=== PATIENT | male | born 1935 | race Caucasian/White ===

== ENCOUNTER 2017-12-01 14:28 | Emergency (ER) | payer MEDICARE, OTHER, SELFPAY ==
[2017-12-01] VITALS (7 sets, daily range): BP systolic 106–128; BP diastolic 56–70; PULSE 72–85; RESP 18–25; TEMP 37.1; O2SAT 95–100
--- NOTE | 2017-12-01 14:34 | ED.NEUROSD ---
HPI - Neuro Symptoms/Deficit General Chief Complaint: Neuro Symptoms/Deficit Stated Complaint: Stoke Time Seen by Provider: 12/01/17 14:28 Source: family and EMS Mode of arrival: EMS Limitations: altered mental status History of Present Illness HPI Narrative: 82-year-old female arrived by EMS as a code stroke. Approximately 30 min prior to arrival at approximately 2 o'clock this afternoon the patient's daughter who was with the patient stated that she started to slow her words. The patient's daughter stated that she started complaining about her left arm and then passed out unknown how long the loss of consciousness was. Patient is a stage IV pancreatic cancer and is on palliative care however the daughter stated that with regard to any potential stroke she would like everything done patient is currently taking Lovenox. Patient's daughter states that approximately 10 days ago she spent several days at [facility] and was diagnosed with a stroke based on an MRI. Patient is unable to provide any HPI Related Data Home Medications Medication Instructions Recorded Confirmed aspirin 81 mg PO DAILY 12/01/17 12/01/17 atorvastatin 40 mg PO QPM 12/01/17 12/01/17 celecoxib [Celebrex] 100 mg PO BID 12/01/17 12/01/17 dexamethasone 1 dose pk PO PRN 12/01/17 12/01/17 diphenoxylate-atropine [Lomotil] 2 tab PO QID PRN 12/01/17 12/01/17 docusate sodium 100 mg PO DAILY 12/01/17 12/01/17 enoxaparin 60 mg SUB-Q Q12H 12/01/17 12/01/17 fentanyl 1 patch TRANSDERMAL Q72H 12/01/17 12/01/17 gabapentin 300 mg PO QPM 12/01/17 12/01/17 hydrocodone-acetaminophen 1 tab PO Q4-6H PRN 12/01/17 12/01/17 lactulose 1 dose PO BID-TID 12/01/17 12/01/17 lidocaine-prilocaine 1 applic TOPICAL DIRECTED 12/01/17 12/01/17 allupw-iooxfnyz-niexrep [Creon] 1 cap PO QD-TID 12/01/17 12/01/17 loperamide 2 mg PO TID PRN 12/01/17 12/01/17 lorazepam 0.5 mg PO TID 12/01/17 12/01/17 ondansetron 1 dose PO DIRECTED 12/01/17 12/01/17 ondansetron HCl 1 tab PO DIRECTED 12/01/17 12/01/17 prochlorperazine maleate 10 mg PO Q6H PRN 12/01/17 12/01/17 ranitidine HCl 1 dose PO DIRECTED 12/01/17 12/01/17 Review of Systems Review of Systems review of systems that was obtained was provided by the daughter Patient was unable to provide any review of systems secondary to her clinical condition review of systems includes neuro: loss of consciousness, slurring her words, left arm numbness no seizure-like activity no loss of bowel or bladder no vomiting no problems with breathing other [facility] Medical History CVA (cerebral vascular accident) (Acute) Pancreatic cancer (Acute) Comment: reviewed patient's past medical surgical family and social history with the daughter Exam Initial Vital Signs Initial Vital Signs: Vital Signs Temperature 98.7 F 12/01/17 14:27 Pulse Rate 79 12/01/17 14:27 Blood Pressure 106/60 12/01/17 14:27 Pulse Oximetry 96 12/01/17 14:27 Const General: No cooperative, comfortable, well developed, well groomed, No acute distress and No combative Orientation: alert, not awake and not oriented x3 HENMT Head: normal to inspection and normocephalic Resp Effort & Inspection: normal respiratory effort Auscultation: clear to auscultation bilaterally Cardio Palpation: normal PMI Rhythm: regular rhythm Pulses: radial pulses present GI Inspection: non-distended Palpation: soft Skin Lesions: no lesions Rashes: no rashes Neuro Other: upon arrival patient was awake and alert. On my examination was unable to speak coherently would not follow commands would not hold her arms up in the air on command however she did spontaneously move her arms and reach out for the side rails would not hold her legs up in the air however would bend her knees spontaneously Would not follow commands as far as for finger to nose would not follow commands as far as testing of cranial nerves Extrem Other: no gross deformities Psych Appearance: grossly normal and well kempt Course Orders Ordered: ED Orders 12/01/17 14:34 EKG-12 Lead Stat 08/01/18 14:41 CT angio head and neck Stat 12/01/17 14:49 Basic Metabolic Panel Stat Complete Blood Count AUTO DIFF Stat Partial Thromboplastin Time Stat Prothrombin Time INR Stat Troponin I Stat Sodium Chloride (Normal Saline 0.9%) 1,000 mls @ 1,000 mls/hr IV BOLUS ONE Stop: 12/01/17 18:05 Discontinued Medications Aspirin (Aspirin Chew) 324 mg PO NOW ONE Stop: 12/01/17 17:07 Vital Signs - 8 hr 12/01/17 14:27 12/01/17 15:04 12/01/17 15:37 Temperature 98.7 F Pulse Rate 79 75 72 Respiratory Rate 19 19 Blood Pressure 106/60 Blood Pressure [Right Arm] 120/56 L 111/57 L Pulse Oximetry 96 97 95 12/01/17 16:09 12/01/17 16:44 12/01/17 17:01 Temperature Pulse Rate 75 85 81 Respiratory Rate 18 25 H 18 Blood Pressure Blood Pressure [Right Arm] 112/56 L 112/60 128/70 H Pulse Oximetry 100 98 98 MDM - Neuro Symptoms/Deficit Lab Data Attestation: I reviewed the patient's lab results. Result diagrams: 12/01/17 14:49 12/01/17 14:49 Lab Results 12/01/17 12/01/17 12/01/17 Range/Units 14:49 14:49 14:49 WBC 8.9 (4.5-11.0) X10^3/uL RBC 2.97 L (4.0-5.2) X10^6/uL Hgb 9.6 L (12.0-16.0) g/dL Hct 28.6 L (36-46) % MCV 96.2 (80-100) fL MCH 32.1 (26-34) PG MCHC 33.4 (30-36) % RDW 15.4 H (11.6-14.8) % Plt Count 190 (150-400) X10^3/uL Neut % (Auto) 54.5 (50-75) % Lymph % (Auto) 27.0 (25-40) % [place] % (Auto) 12.2 (3-14) % Eos % (Auto) 5.6 H (2-4) % Baso % (Auto) 0.7 (0-2) % Neut # (Auto) 4800 (6808-0393) /uL PT 12.0 (10.1-12.7) SECONDS INR 1.1 (0.9-1.3) APTT 37 H (26.4-36.2) SECONDS Sodium 137 (137-145) mmol/L Potassium 4.4 (3.4-5.1) mmol/L Chloride 105 (98-107) mmol/L Carbon Dioxide 23 (22-32) mmol/L BUN 18 H (7-17) mg/dL Creatinine 0.70 (0.52-1.04) mg/dL Estimated GFR > 60.0 (>60) mL/min BUN/Creatinine Ratio 25.7 H (6-22) Glucose 89 (80-110) mg/dL Calcium 9.3 (8.4-10.2) mg/dL Troponin I 0.027 (0.01-0.034) ng/mL Imaging Data CT scan - head: Radiologist's impression: PROCEDURE: CT ANGIO HEAD AND NECK INDICATIONS: possible stroke sudden on confusion TECHNIQUE: Pre-contrast 4.5 mm thick sections acquired from the foramen magnum to the vertex. After the administration of intravenous contrast, 1 mm thick sections acquired from the aortic arch through the [place] of [place]. Post-contrast 4.5 mm thick sections then re-acquired from the foramen magnum to the vertex. 3-dimensional hwhsqaf-thxpzxrox-xhygtfvall (MIP) and/or volume rendering reformats were acquired of the central intracranial vasculature and neck separately. COMPARISON: None. FINDINGS: Image quality: Excellent. BRAIN: CSF spaces: Ventricles are normal in size and shape. Basal cisterns are patent. No extra-axial fluid collections. Brain: No midline shift. No intracranial bleeds or masses. Wilson-white matter interface appears intact. Skull and face: Calvarium and facial bones appear intact, without suspicious lesions. Orbits appear normal. Sinuses: Sinuses and mastoids are clear. HEAD CT ANGIOGRAPHY: Anterior circulation: Intracranial internal carotid arteries are normal in size and flow. The flow within the paired anterior cerebral arteries is normal and symmetric. The flow within the middle cerebral arteries is normal and symmetric. The anterior communicating artery is seen. No aneurysms are seen. Posterior circulation: Visualized portions of the vertebral arteries demonstrate normal caliber, and join to form a normal appearing basilar artery. Flow within the posterior cerebral arteries is normal and symmetric. No aneurysms are seen. NECK CT ANGIOGRAPHY: Carotid system: The great vessels demonstrate a conventional anatomy as they arise from the aortic arch. The origins of the common carotid arteries appear patent. The common carotid arteries demonstrate normal caliber and courses. The bifurcation regions are both widely patent. The internal carotid arteries demonstrate normal calibers and courses. Posterior circulation: The origins of the vertebral arteries both appear widely patent. The more superior extracranial portions of both vertebral arteries also demonstrate normal courses and calibers. They join to form a normal appearing basilar artery. Soft tissues: Visualized neck soft tissues demonstrate no suspicious abnormalities. Bones: No suspicious bony lesions. Visualized cervical spine appears normally aligned. IMPRESSION: 1. No acute intracranial process. 2. Moderate atrophy and chronic microvascular ischemic changes. 3. No areas of hemodynamically significant stenosis, vascular occlusion or aneurysmal dilation within the anterior or posterior circulation. 4. No areas of hemodynamically significant stenosis, vascular occlusion or aneurysmal dilation within the neck vasculature. Any quantitative measurements of stenosis were performed using NASCET criteria. Dictated by: Zuleyma Zavala M.D. on 12/01/2017 at 15:04 Approved by: Zuleyma Zavala M.D. on 12/01/2017 at 15:16 ECG Data Attestation: I personally reviewed and interpreted this ECG as follows: Prior ECG tracings: not available for review Interpretation: EKG dated 01 December 2017 time 1440 hr sinus rhythm ventricular rate is 79 normal as needed oval normal QRS normal QTC No ST T wave changes MDM Narrative Medical decision making narrative: upon arrival patient had a normal blood glucose level. Head CT read by our radiologist showing no acute pathology in no hemodynamic significant stenosis. difficult to obtain neurologic exam on the patient secondary to her ability to participate in the exam. She would not move her arms and legs on command would not hold them up however she would do this spontaneously. During her time here in the emergency department her symptoms did improved/resolved. She did have some problems with speaking however was not slurring her words. She was very soft-spoken. Patient's daughter asked us to talk with [facility] since that is where her last neurologic care was provided. The images were sent. I did discuss the case with Dr. Sams with Neurology who stated that his read of the CTA did show a right-sided occlusion. With the information that I had prior to arrival and the prior CVA 10 days ago, the question as to whether not the neurologic exam was abnormal secondary to the patient's effort, ability to understand the directions, and the apparent improvement of the symptoms while here in the emergency department And the normal head CT read by Radiology, tPA was not administered. after discussion with Neurology at [facility] will send the patient by air for further evaluation and potential clot retrieval by Interventional Radiology. Transfer center stated that Dr. Spivey would be the accepting provider I discussed this with the patient and the daughter who was at bedside. They both expressed understanding and agreement with plan. Discharge Plan Departure Patient Disposition: [facility] Clinical Impression: Cerebrovascular accident Prescriptions: No Action atorvastatin 40 mg Tablet 40 mg PO QPM RF: 0 hydrocodone-acetaminophen 5-325 mg Tablet 1 tab PO Q4-6H PRN (Reason: Pain, Moderate) RF: 0 ondansetron HCl 4 mg Tablet 1 tab PO DIRECTED RF: 0 loperamide 2 mg Tablet 2 mg PO TID PRN (Reason: Diarrhea) RF: 0 diphenoxylate-atropine [Lomotil] 2.5-0.025 mg Tablet 2 tab PO QID PRN (Reason: Diarrhea) RF: 0 prochlorperazine maleate 10 mg Tablet 10 mg PO Q6H PRN (Reason: Nausea) RF: 0 aspirin 81 mg Tablet,Delayed Release (Dr/Ec) 81 mg PO DAILY RF: 0 ondansetron 8 mg Tablet,Disintegrating 1 dose PO DIRECTED RF: 0 lidocaine-prilocaine 2.5-2.5 % Cream 1 applic Topical DIRECTED RF: 0 lorazepam 0.5 mg Tablet 0.5 mg PO TID RF: 0 ranitidine HCl 150 mg Tablet 1 dose PO DIRECTED RF: 0 dexamethasone 4 mg Tablet 1 dose pk PO PRN RF: 0 docusate sodium 100 mg Capsule 100 mg PO DAILY RF: 0 gabapentin 300 mg Capsule 300 mg PO QPM RF: 0 fentanyl 25 mcg/hr Patch 72 Hour 1 patch TRANSDERMAL Q72H RF: 0 celecoxib [Celebrex] 100 mg Capsule 100 mg PO BID RF: 0 enoxaparin 60 mg/0.6 mL Syringe 60 mg SUB-Q Q12H RF: 0 wapgqh-zsusxwjj-zepwmdq [Creon] 36,000-114,000- 180,000 unit Capsule,Delayed Release(Dr/Ec) 1 cap PO QD-TID RF: 0 lactulose 1 dose PO BID-TID RF: 0
--- NOTE | 2017-12-01 14:41 | DI.CT.S_ITS ---
PROCEDURE: CT ANGIO HEAD AND NECK INDICATIONS: possible stroke sudden on confusion TECHNIQUE: Pre-contrast 4.5 mm thick sections acquired from the foramen magnum to the vertex. After the administration of intravenous contrast, 1 mm thick sections acquired from the aortic arch through the [place] of [place]. Post-contrast 4.5 mm thick sections then re-acquired from the foramen magnum to the vertex. 3-dimensional sylymzx-pmthourvb-jvdvzftofn (MIP) and/or volume rendering reformats were acquired of the central intracranial vasculature and neck separately. COMPARISON: None. FINDINGS: Image quality: Excellent. BRAIN: CSF spaces: Ventricles are normal in size and shape. Basal cisterns are patent. No extra-axial fluid collections. Brain: No midline shift. No intracranial bleeds or masses. Wilson-white matter interface appears intact. Skull and face: Calvarium and facial bones appear intact, without suspicious lesions. Orbits appear normal. Sinuses: Sinuses and mastoids are clear. HEAD CT ANGIOGRAPHY: Anterior circulation: Intracranial internal carotid arteries are normal in size and flow. The flow within the paired anterior cerebral arteries is normal and symmetric. The flow within the middle cerebral arteries is normal and symmetric. The anterior communicating artery is seen. No aneurysms are seen. Posterior circulation: Visualized portions of the vertebral arteries demonstrate normal caliber, and join to form a normal appearing basilar artery. Flow within the posterior cerebral arteries is normal and symmetric. No aneurysms are seen. NECK CT ANGIOGRAPHY: Carotid system: The great vessels demonstrate a conventional anatomy as they arise from the aortic arch. The origins of the common carotid arteries appear patent. The common carotid arteries demonstrate normal caliber and courses. The bifurcation regions are both widely patent. The internal carotid arteries demonstrate normal calibers and courses. Posterior circulation: The origins of the vertebral arteries both appear widely patent. The more superior extracranial portions of both vertebral arteries also demonstrate normal courses and calibers. They join to form a normal appearing basilar artery. Soft tissues: Visualized neck soft tissues demonstrate no suspicious abnormalities. Bones: No suspicious bony lesions. Visualized cervical spine appears normally aligned. IMPRESSION: 1. No acute intracranial process. 2. Moderate atrophy and chronic microvascular ischemic changes. 3. No areas of hemodynamically significant stenosis, vascular occlusion or aneurysmal dilation within the anterior or posterior circulation. 4. No areas of hemodynamically significant stenosis, vascular occlusion or aneurysmal dilation within the neck vasculature. Any quantitative measurements of stenosis were performed using NASCET criteria. Dictated by: Zuleyma Zavala M.D. on 12/01/2017 at 15:04 Approved by: Zuleyma Zavala M.D. on 12/01/2017 at 15:16
[2017-12-01 15:01] LABS: Add Manual Diff / Slide Review NO; Basophils Percent Auto 0.7 % (0-2); Eosinophils Percent Auto 5.6 % (2-4); Hematocrit 28.6 % (36-46); Hemoglobin 9.6 g/dL (12.0-16.0); Mean Corpuscular HGB Conc 33.4 % (30-36); Mean Corpuscular Hemoglobin 32.1 PG (26-34); Mean Corpuscular Volume 96.2 fL (80-100); Monocytes Percent Auto 12.2 % (3-14); Neutrophils Absolute Auto 4800 /uL (3000-5900); Neutrophils Percent Auto 54.5 % (50-75); Platelet Count 190 X10^3/uL (150-400); Red Blood Cell Count 2.97 X10^6/uL (4.0-5.2); Red Cell Distribution Width 15.4 % (11.6-14.8); White Blood Cell Count 8.9 X10^3/uL (4.5-11.0)
[2017-12-01 15:13] LABS: INR 1.1 (0.9-1.3)
[2017-12-01 15:15] LABS: PTT Partial Thromboplastin Tim 37 SECONDS (26.4-36.2)
[2017-12-01 15:16] LABS: BUN Creatinine Ratio 25.7 (6-22); Blood Urea Nitrogen 18 mg/dL (7-17); Calcium 9.3 mg/dL (8.4-10.2); Carbon Dioxide 23 mmol/L (22-32); Chloride 105 mmol/L (98-107); Estimated Glomerular Filt Rate > 60.0 mL/min (>60); Glucose 89 mg/dL (80-110); HEMOLYSIS 16 (0-50); Potassium 4.4 mmol/L (3.4-5.1); Sodium 137 mmol/L (137-145)
[2017-12-01 15:28] LABS: Troponin I 0.027 ng/mL (0.01-0.034)
--- NOTE | 2017-12-01 17:22 | PC.NURSE ---
Pt mental status improving,pt able to answer questions with some slurring. Pt able to write down information,pt sitting upright taking fluids,pt states that she has a little bit of pain.
[2017-12-01] MEDS: ASPIRIN 81 MG TAB 324 MG PO (17:35)
[2017-12-01] MEDS: SODIUM CHLORIDE 0.9% 1,000 ML 1000 ML IV (17:36)
--- NOTE | 2017-12-01 18:07 | PC.NURSE ---
Unable to fully evaluate NIH scale. Pt not moving extremities,pt able to slightly nicker and push with feet. pt unable to speak upon arrival to ed.
== END 2017-12-01 18:05 | disposition short-term general hospital (02) ==
PROVIDERS: Emergency Provider Emergency Medicine
DX: I63.9 Cerebral infarction, unspecified (principal)
CPT/HCPCS: 70496; 70498; 80048; 82962; 84484; 85025; 85610; 85730; 93005; 93010; 99283; 99285; 99291; Q9967